=== PATIENT | male | born 1975 | race Caucasian/White ===

== ENCOUNTER 2018-02-17 13:29 | Emergency (ER) | payer MEDICAID ==
[2018-02-17 14:03] LABS: % BASOPHILS 0.1 % (0.0-2.0); % EOSINOPHILS 0.5 % (0.0-5.0); % LYMPHOCYTES 19.9 % (20.0-50.0); % MONOCYTES 5.5 % (2.0-10.0); EOSINOPHILE ABSOLUTE 0.1 Th/cmm (0.1-0.4); HEMATOCRIT 48.8 % (41.0-60); HEMOGLOBIN 16.7 gm/dL (12-16); LYMPHOCYTE ABSOLUTE 2.2 Th/cmm (1.5-3.0); MEAN CELL VOLUME 93.6 fl (80-99); MEAN CORPUSCULAR HEMOGLOBIN 32.1 pg (26.0-30.0); MEAN CORPUSCULAR HGB CONC 34.3 pg (28.0-36.0); MEAN PLATELET VOLUME 7.9 fl; MONOCYTE ABSOLUTE 0.6 Th/cmm (0.3-1.0); PLATELET COUNT 272 Th/cmm (150-400); RED BLOOD COUNT 5.21 Mil/cmm (4.30-5.70); RED CELL DISTRIBUTION WIDTH 12.6 % (11.5-20.0); WHITE BLOOD COUNT 10.9 Th/cmm (4.8-10.8)
--- NOTE | 2018-02-17 14:03 | ED Physician Chart ---
ED Chief Complaint/HPI - Patient Information Date Seen:: 02/17/18 Time Seen:: 13:50 Chief Complaint:: RIGHT KNEE PAIN History of Present Illness:: THIS IS A 42 YEAR OLD MALE WHO IS CONCERNED ABOUT THE PAIN AND SWELLING OF THE RIGHT KNEE WHICH GOT SO BAD THIS AM HE COULD NOT WALK TODAY. HE DENIES HAVING ANY RECENT OR OLD RIGHT KNEE TRAUMA. HE DENIES DIABETES, HTN OR HEART DISEASE. Allergies:: Allergies Allergy/AdvReac Type Severity Reaction Status Date / Time No Known Allergies Allergy Verified 02/17/18 13:52 Vitals:: Vital Signs - 8 hr 02/17/18 13:52 Temp 98.7 F HR 83 RR 16 BP 134/76 O2 Sat % 97 Historian:: Patient Review:: Nurse's Note Reviewed ED Review of Systems - Review of Systems Musculoskeletal: Bone or joint pain (RIGHT KNEE PAIN) ED Past Medical History - Past Medical History Obtainable: Yes Past Medical History: No significant medical hx Family History: None Social History: Non Smoker, No Alcohol, No Drug Use, , Employed Surgical History: Appendectomy Psychiatricy History: None Medication: Reviewed Family Medical History - Family Member Father History Unknown: Yes ED Physical Exam - Physical Examination General/Constitutional: Awake, Well-developed, well-nourished, Alert, No distress, GCS 15, Non-toxic appearing, Ambulatory Head: Atraumatic Eyes: Lids, conjuctiva normal, PERRL, EOMI Skin: Nl inspection, No rash, No skin lesions, No ecchymosis, Well hydrated, No lymphadenopathy ENMT: External ears, nose nl, Nasal exam nl, Lips, teeth, gums nl Neck: Nontender, Full ROM w/o pain, No JVD, No nuchal rigidity, No bruit, No mass, No stridor Respiratory: Nl effort/Exclusion, Clear to Auscultation, No Wheeze/Rhonchi/Rales Cardio Vascular: RRR, No murmur, gallop, rubs, NL S1 S2 GI: No tenderness/rebounding/guarding, No organomegaly, No hernia, Normal BS's, Nondistended, No mass/bruits, No McBurney tenderness : No CVA tenderness Extremities: No tenderness or effusion (RIGHT KNEE IS SWOLLEN WITH AN EFFUSION, WARM, TENDER AND RED.), Full ROM, normal strength in all extremities, No edema, Normal digits & nails Neuro/Psych: Alert/oriented, DTR's symmetric, Normal sensory exam, Normal motor strength, Judgement/insight normal, Mood normal, Normal gait, No focal deficits Misc: Normal back, No paraspinal tenderness ED Septic Shock - <6hrs of presentation: Vital Signs: Vital Signs - 8 hr //18 13:52 Temp 98.7 F HR 83 RR 16 BP 134/76 O2 Sat % 97
[2018-02-17 14:17] LABS: ALBUMIN 4.5 gm/dL (4.2-5.5); ANION GAP 11.8 (7.0-16.0); BUN - UREA NITROGEN 11 mg/dL (7-25); CALCIUM SERUM 9.4 mg/dL (8.6-10.3); CARBON DIOXIDE 26.6 mEq/L (21.0-31.0); CHLORIDE 102 mEq/L (98-107); CREATININE - SERUM 0.8 mg/dL (0.7-1.3); GFR AFRICAN-AMERICAN > 60.0 ml/min (>90); GFR NON AFRICAN-AMERICAN > 60.0 ml/min; GLUCOSE 93 mg/dL (70-105); POTASSIUM SERUM 3.4 mEq/L (3.5-5.1); SODIUM SERUM 137 mEq/L (136-145); TOTAL PROTEIN,SERUM 7.3 gm/dL (6.0-8.3)
[2018-02-17 14:18] LABS: ALB/GLOB RATIO 1.6 (1.0-1.8); ALKALINE PHOSPHATASE 70 U/L (34-104); SGOT 20 U/L (13-39); SGPT/ALT 23 U/L (7-52)
[2018-02-17 14:31] LABS: INR 1.04 (0.5-1.4); PROTHROMBIN TIME (TEST) 10.8 SECONDS (9.5-11.5)
[2018-02-17] MEDS ORDERED: Sodium Chloride 0.45% 500 ML IV ONE (14:31)
[2018-02-17 14:53] LABS: URINE MICROSCOPIC INDICATED? YES; URINE SOURCE CATH
[2018-02-17 14:57] LABS: URINE BILIRUBIN NEGATIVE (NEGATIVE); URINE BLOOD NEGATIVE (NEGATIVE); URINE GLUCOSE (UA) NEGATIVE (NEGATIVE); URINE KETONE NEGATIVE (NEGATIVE); URINE LEUKOCYTE ESTERASE NEGATIVE (NEGATIVE); URINE NITRATE NEGATIVE (NEGATIVE); URINE PROTEIN NEGATIVE (NEGATIVE); URINE UROBILINOGEN 0.2 E.U./dL (0.2 - 1.0)
[2018-02-17] MEDS ORDERED: IOHEXOL 300mgI/mL 100 ML VIAL ONE (14:58)
[2018-02-17 15:04] LABS: URINE CLARITY CLEAR (CLEAR); URINE COLOR YELLOW
[2018-02-17 15:05] LABS: URINE BACTERIA NONE SEEN /hpf (NONE SEEN); URINE EPITHELIAL CELLS NONE SEEN /lpf (FEW); URINE RBC NONE SEEN /hpf (0-5); URINE WBC NONE SEEN /hpf (0-5)
--- NOTE | 2018-02-18 08:47 | Diagnostic Imaging Report ---
CT right knee with IV contrast History: Pain, swelling, effusion Comparison: None Technique: Axial images were obtained from the distal femur or proximal tibia with IV contrast. Reconstructions were made. Total DLP 160, CTD I 4 Findings: Exam is limited due to motion including limiting assessment for fractures. Minimal degenerative changes are noted. The knee joint spaces are preserved. No evidence of a joint effusion. There is diffuse subcutaneous edema and seen throughout the prepatellar and infrapatellar soft tissues with small amount of fluid and possible phlegmonous changes. There may be tiny filling defects within the right popliteal vein. No evidence of osseous erosions. IMPRESSION: Limited exam due to motion. There is diffuse subcutaneous edema and inflammatory changes along the prepatellar and infrapatellar soft tissues. Small amount of fluid is seen located along the prepatellar region. Phlegmonous changes and small early abscess formation this region cannot be excluded. Clinical correlation and follow-up is recommended. Possible small Filling defect within the right popliteal vein. This may be due to the phase of contrast opacification, however, DVT in these regions cannot be excluded. Recommend dedicated DVT study for further assessment No evidence of a knee effusion. The final results and recommendations were administered and discussed with the referring team on 02/18/2018 8:44 AM.
== END 2018-02-17 16:51 | disposition home or self-care (01) ==
LOC: ER 13:29
DX: M25.561 Pain in right knee (principal); M25.461 Effusion, right knee; Z90.49 Acquired absence of other specified parts of digestive tract
CPT/HCPCS: 99285; 96372; 73702; 36415; 85025; 85610; 85730; 81001; 80053; 84550; 87040 ×2; J0696; Q9967

== ENCOUNTER 2018-02-18 04:46 | Inpatient (IN) | payer MEDICAID ==
[2018-02-18] MEDS ORDERED: Sodium Chloride 0.9% 1,000 ML IV ONE (05:17)
--- NOTE | 2018-02-18 05:25 | ED Physician Chart ---
ED Chief Complaint/HPI - Patient Information Date Seen:: 02/18/18 Time Seen:: 05:10 Chief Complaint:: right knee pain History of Present Illness:: Patient had onset 2 days ago of right knee pain. Patient's had chills but no fever. No trauma. Patient was seen in this emergency department yesterday and prescribed Cipro and a Z-Ayaan. He is taken two of the Z-Ayaan and 1 Cipro. Right knee pain is increased. Allergies:: Allergies Allergy/AdvReac Type Severity Reaction Status Date / Time No Known Allergies Allergy Verified 02/18/18 04:55 Vitals:: Vital Signs - 8 hr 02/18/18 04:50 Temp 98.4 F HR 83 RR 18 BP 127/83 O2 Sat % 97 Historian:: Patient, Family Member Review:: Nurse's Note Reviewed ED Review of Systems - Review of Systems General/Constitutional: Chills Skin: Skin lesions Head: No headache Eyes: No loss of vision ENT: No earache Neck: No neck pain Cardio Vascular: No chest pain Pulmonary: No SOB GI: No nausea, No vomiting, No diarrhea G/U: No dysuria Musculoskeletal: Bone or joint pain Endocrine: No polyuria Psychiatric: No prior psych history, No anxiety Hematopoietic: No bruising Allergic/Immuno: No urticaria Neurological: Focal symptoms, Weakness ED Past Medical History - Past Medical History Past Medical History: No significant medical hx Family History: None Social History: Smoker, Alcohol, Other (slight tobacco and slight alcohol use) Surgical History: Appendectomy Psychiatricy History: None Medication: Reviewed Family Medical History - Family Member Father History Unknown: Yes Ethnicity: ED Physical Exam - Physical Examination General/Constitutional: Awake, Well-developed, well-nourished, Alert, No distress, GCS 15, Non-toxic appearing, Ambulatory Head: Atraumatic Eyes: Lids, conjuctiva normal, PERRL, EOMI Skin: Well hydrated, No lymphadenopathy Other Skin comments:: Right leg: there is about 25 cm of pale erythema extending distally from the skin over the most proximal aspect of the patella. The redness is over the anterior and lateral aspect of the knee and right lower leg. Over the patellar tendon there is about a 2-1/2 cm slightly raised area which is the site of maximum tenderness ENMT: External ears, nose nl, Nasal exam nl, Lips, teeth, gums nl Neck: Nontender, Full ROM w/o pain, No JVD, No nuchal rigidity, No bruit, No mass, No stridor Respiratory: Nl effort/Exclusion, Clear to Auscultation, No Wheeze/Rhonchi/Rales Cardio Vascular: RRR, No murmur, gallop, rubs, NL S1 S2 GI: No tenderness/rebounding/guarding, No organomegaly, No hernia, Normal BS's, Nondistended, No mass/bruits, No McBurney tenderness : No CVA tenderness Extremities: No edema Other Extremities comments:: About 90 of passive flexion right knee Neuro/Psych: Alert/oriented, DTR's symmetric, Normal sensory exam, Normal motor strength, Judgement/insight normal, Mood normal, Normal gait, No focal deficits Misc: Normal back, No paraspinal tenderness ED Assessment - Assessment General Assessment: The area of maximum swelling and tenderness over the patellar tendon may be an early abscess. If david MRSA is a major consideration of the etiology of the infection. Since the infection seems to be getting worse is appropriate to admit the patient. I spoke to Dr. Jamie Cole at about 0600 and he will be the admitting physician/ ED Septic Shock - . Is Septic Shock (SBP<90, OR Lactate>4 mmol\L) present?: No - <6hrs of presentation: Vital Signs: Vital Signs - 8 hr 02/18/18 04:50 Temp 98.4 F HR 83 RR 18 BP 127/83 O2 Sat % 97 ED Reassessment (Disposition) - Reassessment Reassessment Condition:: Unchanged - Diagnosis Diagnosis:: Cellulitis right knee and right lower leg; early abscess right knee - Patient Disposition Admitted to:: Med/Surg Spoke to:: Jamie Cole Admitting Medical Physician:: Jamie Cole Condition at Disposition:: Stable, Unchanged
--- NOTE | 2018-02-18 07:43 | History and Physical ---
History of Present Illness - HPI Chief Complaint: right knee pain HPI: 42 y/o male who presents to [facility] ER for right knee pain and swelling. Patient was seen in the ER prior to admission and was initially treat with PO antibiotics. Patient return to the ER with worsening of his symptoms. Initial labwork showed a slight increased in WBC's to 10.9. Patient K + was noted to be low at 3.4. 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 Patient's had chills but no fever. No trauma. Patient was seen in this emergency department yesterday and prescribed Cipro and a Z-Ayaan. He is taken two of the Z-Ayaan and 1 Cipro. Right knee pain is increased. Vital Signs: Last Vital Signs Temp 98.0 F 02/18/18 06:55 Pulse 78 02/18/18 06:55 Resp 18 02/18/18 06:55 BP 125/80 02/18/18 06:55 Pulse Ox 98 02/18/18 06:55 Past Medical History Cardiovascular: Report: No Pertinent Hx Pulmonary: Report: No Pertinent Hx [employer]: Report: No Pertinent Hx GI: Report: No Pertinent Hx Psych: Report: No Pertinent Hx Musculoskeletal: Report: Swelling (right knee swelling and pain) Rheumatologic: Report: No pertinent Hx Infectious Disease: Report: No Pertinent Hx Renal/: Report: No Pertinent Hx Endocrine: Report: No Pertinent Hx Dermatology: Report: No Pertinent Hx - Past Surgical History Past Surgical History: No pertinent Hx Family Medical History - Family Member Father History Unknown: Yes Ethnicity: Social History Smoke: No Alcohol: None Drugs: None Lives: With Family - Medications Home Medications: Home Medication Medication Instructions Recorded Type Azithromycin [Zithromax Tri-Ayaan] 500 mg PO DAILY #1 tab 02/17/18 Rx Ciprofloxacin HCl [Cipro] 250 mg PO BID 7 Days #14 tab 02/17/18 Rx - Allergies Allergies/Adverse Reactions: Allergies Allergy/AdvReac Type Severity Reaction Status Date / Time No Known Allergies Allergy Verified 02/18/18 04:55 Review of Systems - Review of Systems Constitutional: Report: No Significant Eyes: Report: No Significant ENT: Report: No Significant Respiratory: Report: No Significant Cardiovascular: Report: No Significant Gastrointestinal: Report: No Significant Genitourinary: Report: No Significant Musculoskeletal: Report: Other (right knee pain) Skin: Report: No Significant Neurological: Report: No Significant Physical Exam - Physical Exam HEENT: Report: Ears Nose Throat within normal limits, Pharnyx within normal limits Neck: Report: Within normal limits Cardiovascular Systems: Report: +s1/s2 noted, Regular, Rate and Rhythm Respiratory: Report: Breath Sounds are within normal limits, Clear to Auscultation of lung king Abdomen: Report: Non-tender to palpation Back: Report: Inspection of back is within normal limits. Extremities: Report: Other (right knee erythema, swelling noted to the prepateller region) Skin: Report: Warm (warmth and redness noted at the right prepatellar area) Neuro/Psych: Report: Mood affect is within normal limits, A+Ox3, CN II-XII intact - Assessment Assessment: right knee cellulitis possible early right knee abscess sepsis - Plan Plan: will order ortho consult xray of the right knee vancomycin per pharmacy zosyn IV repeat CBC, CMP, ESR, blood cultures IV pain meds
[2018-02-18] MEDS ORDERED: Morphine Sulfate 2 mg/mL 1mL Syr IVP PRN (07:48)
[2018-02-18 08:49] LABS: % BASOPHILS 0.2 % (0.0-2.0); % EOSINOPHILS 0.7 % (0.0-5.0); % LYMPHOCYTES 19.2 % (20.0-50.0); % MONOCYTES 8.2 % (2.0-10.0); % NEUTROPHILS 71.7 % (40.0-80.0); EOSINOPHILE ABSOLUTE 0.1 Th/cmm (0.1-0.4); HEMATOCRIT 45.1 % (41.0-60); HEMOGLOBIN 15.5 gm/dL (12-16); LYMPHOCYTE ABSOLUTE 1.8 Th/cmm (1.5-3.0); MEAN CELL VOLUME 93.5 fl (80-99); MEAN CORPUSCULAR HGB CONC 34.3 pg (28.0-36.0); MEAN PLATELET VOLUME 8.1 fl; MONOCYTE ABSOLUTE 0.8 Th/cmm (0.3-1.0); NEUTROPHILE ABSOLUTE 6.9 Th/cmm (1.8-8.0); PLATELET COUNT 250 Th/cmm (150-400); RED BLOOD COUNT 4.83 Mil/cmm (4.30-5.70); RED CELL DISTRIBUTION WIDTH 12.3 % (11.5-20.0); WHITE BLOOD COUNT 9.6 Th/cmm (4.8-10.8)
[2018-02-18 09:05] LABS: ALB/GLOB RATIO 1.5 (1.0-1.8); ALBUMIN 3.8 gm/dL (4.2-5.5); ALKALINE PHOSPHATASE 72 U/L (34-104); BUN - UREA NITROGEN 10 mg/dL (7-25); CALCIUM SERUM 8.9 mg/dL (8.6-10.3); CARBON DIOXIDE 24.9 mEq/L (21.0-31.0); CHLORIDE 107 mEq/L (98-107); CREATININE - SERUM 0.7 mg/dL (0.7-1.3); GFR AFRICAN-AMERICAN > 60.0 ml/min (>90); GFR NON AFRICAN-AMERICAN > 60.0 ml/min; GLUCOSE 114 mg/dL (70-105); POTASSIUM SERUM 3.9 mEq/L (3.5-5.1); SGOT 24 U/L (13-39); SGPT/ALT 21 U/L (7-52); SODIUM SERUM 137 mEq/L (136-145); TOTAL PROTEIN,SERUM 6.3 gm/dL (6.0-8.3)
[2018-02-18 09:08] LABS: ESR SEDIMENTATION SED RATE 8 mm/hr (0-20)
--- NOTE | 2018-02-18 09:20 | Diagnostic Imaging Report ---
Right knee 3 views Indication: pain Comparison: Right knee CT on 02/17/2018 Findings: No evidence of an acute fracture or dislocation. No osseous erosions. No joint effusion. There is subcutaneous edema with soft tissue swelling greatest along the prepatellar and infrapatellar regions. Impression: No evidence of an acute fracture. Subcutaneous edema and soft tissue swelling greatest along the prepatellar and infrapatellar regions. Please refer to recent CT examination for further details. In the setting of trauma, if clinical symptoms persist and there is continued concern for an occult fracture, follow up exams in 5-7 days is suggested.
[2018-02-18] MEDS: D5-0.45NS 1,000 ML IV SCH (17:51)
--- NOTE | 2018-02-19 07:23 | General Progress Note ---
Subjective - Review of Systems Service Date: 02/19/18 Subjective: Patient was seen and examined. Feels better this AM. localized swelling and redness to the affected area. Afebrile. Objective - Results Result Diagrams: 02/18/18 08:20 02/18/18 08:20 Recent Labs: Laboratory Last Values WBC 9.6 Th/cmm (4.8-10.8) 02/18/18 08:20 RBC 4.83 Mil/cmm (4.30-5.70) 02/18/18 08:20 Hgb 15.5 gm/dL (12-16) 02/18/18 08:20 Hct 45.1 % (41.0-60) 02/18/18 08:20 MCV 93.5 fl (80-99) 02/18/18 08:20 MCH 32.0 pg (26.0-30.0) H 02/18/18 08:20 MCHC Differential 34.3 pg (28.0-36.0) 02/18/18 08:20 RDW 12.3 % (11.5-20.0) 02/18/18 08:20 Plt Count 250 Th/cmm (150-400) 02/18/18 08:20 MPV 8.1 fl 02/18/18 08:20 Neutrophils % 71.7 % (40.0-80.0) 02/18/18 08:20 Lymphocytes % 19.2 % (20.0-50.0) L 02/18/18 08:20 Monocytes % 8.2 % (2.0-10.0) 02/18/18 08:20 Eosinophils % 0.7 % (0.0-5.0) 02/18/18 08:20 Basophils % 0.2 % (0.0-2.0) 02/18/18 08:20 ESR 8 mm/hr (0-20) 02/18/18 08:20 Sodium 137 mEq/L (136-145) 02/18/18 08:20 Potassium 3.9 mEq/L (3.5-5.1) 02/18/18 08:20 Chloride 107 mEq/L (98-107) 02/18/18 08:20 Carbon Dioxide 24.9 mEq/L (21.0-31.0) 02/18/18 08:20 Anion Gap 9.0 (7.0-16.0) 02/18/18 08:20 BUN 10 mg/dL (7-25) 02/18/18 08:20 Creatinine 0.7 mg/dL (0.7-1.3) 02/18/18 08:20 Est GFR ( Amer) > 60.0 ml/min (>90) 02/18/18 08:20 Est GFR (Non-Af Amer) > 60.0 ml/min 02/18/18 08:20 BUN/Creatinine Ratio 14.3 02/18/18 08:20 Glucose 114 mg/dL (70-105) H 02/18/18 08:20 Calcium 8.9 mg/dL (8.6-10.3) 02/18/18 08:20 Total Bilirubin 1.0 mg/dL (0.3-1.0) 02/18/18 08:20 AST 24 U/L (13-39) 02/18/18 08:20 ALT 21 U/L (7-52) 02/18/18 08:20 Alkaline Phosphatase 72 U/L (34-104) 02/18/18 08:20 Total Protein 6.3 gm/dL (6.0-8.3) 02/18/18 08:20 Albumin 3.8 gm/dL (4.2-5.5) L 02/18/18 08:20 Globulin 2.5 gm/dL 02/18/18 08:20 Albumin/Globulin Ratio 1.5 (1.0-1.8) 02/18/18 08:20 - Physical Exam Vitals and I&O: Vital Signs Temp 98.2 F 02/19/18 04:00 Pulse 67 02/19/18 04:00 Resp 17 02/19/18 04:00 BP 110/64 02/19/18 04:00 Pulse Ox 99 02/19/18 04:00 Intake & Output 02/18/18 02/19/18 02/19/18 18:59 06:59 18:59 Intake Total 350 50 Balance 350 50 Weight (lbs) 76.204 kg Intake: Intake, IV Amount 350 50 Piperacillin Sodium/ 100 50 Tazobact 3.375 gm In Sodium Chloride 0.9% 50 ml @ 100 mls/hr IV Q6HR [facility] Rx#:[id number] Other: Weight Source Bedscale Active Medications: Current Medications Piperacillin Sod/Tazobactam (Sod 3.375 gm/ Sodium Chloride) 50 mls @ 100 mls/ hr IV Q6HR [facility] Stop: 04/19/18 11:59 Last Admin: 02/19/18 06:06 Dose: 100 mls/hr Dextrose/Sodium Chloride (D5-0.45ns) 1,000 mls @ 50 mls/hr IV .Q20H [facility] Stop: 04/19/18 17:29 Last Admin: 02/18/18 17:51 Dose: 50 mls/hr Ibuprofen (Motrin) 600 mg PO TID [facility] Stop: 04/19/18 08:59 Last Admin: 02/18/18 21:47 Dose: Not Given Morphine Sulfate (Morphine) 1 mg IVP Q4HR PRN PRN Reason: Pain (Moderate) Stop: 04/19/18 07:47 General: Alert, Oriented x3, No acute distress HEENT: Atraumatic, PERRLA, EOMI Neck: Supple, no JVD Cardiovascular: Regular rate, Normal S1, Normal S2 Lungs: Clear to auscultation Abdomen: Bowel sounds Extremities: no Clubbing, no Cyanosis, no Edema - Procedures Procedures: Procedures Procedure Code Date LAPAROSCOP APPENDECTOMY 47.01 11/10/12 LAPAROSCOPY APPENDECTOMY 81542 11/10/12 Assessment/Plan - Assessment Assessment: right knee cellulitis possible early right knee abscess sepsis - Plan Plan: will order ortho consult xray of the right knee vancomycin per pharmacy zosyn IV right lower extremity Venous US IV pain meds
--- NOTE | 2018-02-19 11:15 | Diagnostic Imaging Report ---
Right lower extremity Doppler venous ultrasound exam HISTORY: Pain/swelling Sonographic sector images were obtained through the deep venous systems of the right leg. Associated Doppler data was obtained. The exam demonstrates patency of the common femoral, superficial femoral, popliteal, and posterior tibial veins. Specifically, no thrombus is seen. There are normal compressibility and augmentation responses. IMPRESSION: Negative exam for deep vein thrombophlebitis.
--- NOTE | 2018-02-19 16:46 | Consultation ---
DATE OF CONSULTATION: 02/19/2018 ORTHOPEDIC SURGERY CONSULTATION REASON FOR CONSULTATION: The patient is a 42-year-old male admitted to [facility] on 02/18/2018 because of an infection of his right knee. I was called in orthopedic consultation regarding his knee. 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 of his right knee. He began with pain and swelling and infection several days ago and was seen in the Emergency Room and prescribed antibiotics. His symptoms worsened and he returned and was admitted. He has no other areas of infection in his body and denies prior similar situations. ADDITIONAL PAST HISTORY: Surgeries include prior appendectomy. He has no medical issues. Takes no prescription medication prior to this event. PHYSICAL EXAMINATION: The patient was examined in his hospital room at [facility]. Slight swelling of the prepatellar tendon area was noted with minimal tenderness. There was minimal fluctuance of slight fluid under the skin. He stated there was markedly more swelling and pain in the prior 2 days than now -- the antibiotics are helping. The knee itself is dry with no effusion. There is nearly normal motion of the knee with minimal discomfort. Neurovascular function normal. IMAGING STUDIES: I viewed the images in the PACS. X-rays of the right knee, 3-views 02/18/2018: The lateral view showed some soft tissue swelling exactly over the patellar tendon. Remainder of the views are normal. There is a CT of the knee on 02/17/2018, which does not show any evidence of injury or trauma or fluid in the knee. He had an ultrasound of the leg for DVT, but none were found -- it was negative. ORTHOPEDIC IMPRESSION: Prepatellar bursitis, probably septic right knee. RECOMMENDATIONS: He is improving nicely on his present antibiotic treatment regimen. One might add intermittent warm moist compresses to help resolve this situation sooner. As along as his issue resolved, he will not need surgical exploration or drainage. I will see him again at your request. JOB# [id number] YOAN
[2018-02-20] MEDS: D5-0.45NS 1,000 ML IV SCH (01:01)
--- NOTE | 2018-02-20 07:48 | General Progress Note ---
Subjective - Review of Systems Service Date: 02/20/18 Subjective: Patient was seen and examined. Feels better this AM. localized swelling and redness to the affected area is slowly improving. Afebrile. Objective - Results Result Diagrams: 02/18/18 08:20 02/18/18 08:20 Recent Labs: Laboratory Last Values WBC 9.6 Th/cmm (4.8-10.8) 02/18/18 08:20 RBC 4.83 Mil/cmm (4.30-5.70) 02/18/18 08:20 Hgb 15.5 gm/dL (12-16) 02/18/18 08:20 Hct 45.1 % (41.0-60) 02/18/18 08:20 MCV 93.5 fl (80-99) 02/18/18 08:20 MCH 32.0 pg (26.0-30.0) H 02/18/18 08:20 MCHC Differential 34.3 pg (28.0-36.0) 02/18/18 08:20 RDW 12.3 % (11.5-20.0) 02/18/18 08:20 Plt Count 250 Th/cmm (150-400) 02/18/18 08:20 MPV 8.1 fl 02/18/18 08:20 Neutrophils % 71.7 % (40.0-80.0) 02/18/18 08:20 Lymphocytes % 19.2 % (20.0-50.0) L 02/18/18 08:20 Monocytes % 8.2 % (2.0-10.0) 02/18/18 08:20 Eosinophils % 0.7 % (0.0-5.0) 02/18/18 08:20 Basophils % 0.2 % (0.0-2.0) 02/18/18 08:20 ESR 8 mm/hr (0-20) 02/18/18 08:20 Sodium 137 mEq/L (136-145) 02/18/18 08:20 Potassium 3.9 mEq/L (3.5-5.1) 02/18/18 08:20 Chloride 107 mEq/L (98-107) 02/18/18 08:20 Carbon Dioxide 24.9 mEq/L (21.0-31.0) 02/18/18 08:20 Anion Gap 9.0 (7.0-16.0) 02/18/18 08:20 BUN 10 mg/dL (7-25) 02/18/18 08:20 Creatinine 0.7 mg/dL (0.7-1.3) 02/18/18 08:20 Est GFR ( Amer) > 60.0 ml/min (>90) 02/18/18 08:20 Est GFR (Non-Af Amer) > 60.0 ml/min 02/18/18 08:20 BUN/Creatinine Ratio 14.3 02/18/18 08:20 Glucose 114 mg/dL (70-105) H 02/18/18 08:20 Calcium 8.9 mg/dL (8.6-10.3) 02/18/18 08:20 Total Bilirubin 1.0 mg/dL (0.3-1.0) 02/18/18 08:20 AST 24 U/L (13-39) 02/18/18 08:20 ALT 21 U/L (7-52) 02/18/18 08:20 Alkaline Phosphatase 72 U/L (34-104) 02/18/18 08:20 Total Protein 6.3 gm/dL (6.0-8.3) 02/18/18 08:20 Albumin 3.8 gm/dL (4.2-5.5) L 02/18/18 08:20 Globulin 2.5 gm/dL 02/18/18 08:20 Albumin/Globulin Ratio 1.5 (1.0-1.8) 02/18/18 08:20 - Physical Exam Vitals and I&O: Vital Signs Temp 98.0 F 02/20/18 07:33 Pulse 71 02/20/18 07:33 Resp 18 02/20/18 07:33 BP 116/82 02/20/18 07:33 Pulse Ox 98 02/20/18 07:33 Intake & Output 02/19/18 02/20/18 02/20/18 18:59 06:59 18:59 Intake Total 1600 50 Balance 1600 50 Weight (lbs) 76.204 kg Intake: Intake, IV Amount 1600 50 D5-0.45NS 1,000 ml @ 50 1000 mls/hr IV .Q20H [facility] Rx#: [id number] Piperacillin Sodium/ 100 50 Tazobact 3.375 gm In Sodium Chloride 0.9% 50 ml @ 100 mls/hr IV Q6HR [facility] Rx#:[id number] Vancomycin HCl 1.25 gm In 500 Sodium Chloride 0.9% 250 ml @ 165 mls/hr IV Q8H [facility] Rx#:[id number] Other: Weight Source Bedscale Active Medications: Current Medications Acetaminophen (Tylenol) 650 mg PO Q6H PRN PRN Reason: Headache Stop: 04/20/18 07:19 Piperacillin Sod/Tazobactam (Sod 3.375 gm/ Sodium Chloride) 50 mls @ 100 mls/ hr IV Q6HR [facility] Stop: 04/19/18 11:59 Last Admin: 02/20/18 05:47 Dose: 100 mls/hr Dextrose/Sodium Chloride (D5-0.45ns) 1,000 mls @ 50 mls/hr IV .Q20H [facility] Stop: 04/19/18 17:29 Last Admin: 02/20/18 01:01 Dose: 50 mls/hr Vancomycin HCl 1.25 gm/ Sodium (Chloride) 250 mls @ 165 mls/hr IV Q8H [facility] Stop: 04/20/18 07:59 Last Admin: 02/20/18 01:02 Dose: 165 mls/hr Ibuprofen (Motrin) 800 mg PO BID PRN PRN Reason: Pain (Mild) Stop: 04/20/18 07:18 Last Admin: 02/19/18 07:56 Dose: 800 mg Miscellaneous (Vancomycin Iv Per Pharmacy) 1 ea [facility] PRN PRN PRN Reason: PROTOCOL Stop: 04/20/18 07:16 Morphine Sulfate (Morphine) 1 mg IVP Q4HR PRN PRN Reason: Pain (Moderate) Stop: 04/19/18 07:47 General: Alert, Oriented x3, No acute distress HEENT: Atraumatic, PERRLA, EOMI Neck: Supple, no JVD Cardiovascular: Regular rate, Normal S1, Normal S2 Lungs: Clear to auscultation Abdomen: Bowel sounds, Splenomegaly Extremities: Tender (swelling, erythema, redness right knee) - Procedures Procedures: Procedures Procedure Code Date LAPAROSCOP APPENDECTOMY 47.01 11/10/12 LAPAROSCOPY APPENDECTOMY 99191 11/10/12 Assessment/Plan - Assessment Assessment: right knee cellulitis vs bursitis possible early right knee abscess sepsis right knee pain - Plan Plan: will order ortho consult xray of the right knee vancomycin per pharmacy zosyn IV right lower extremity Venous US IV pain meds
[2018-02-20 07:53] LABS: % BASOPHILS 0.7 % (0.0-2.0); % EOSINOPHILS 1.9 % (0.0-5.0); % LYMPHOCYTES 28.5 % (20.0-50.0); % MONOCYTES 9.4 % (2.0-10.0); % NEUTROPHILS 59.5 % (40.0-80.0); EOSINOPHILE ABSOLUTE 0.1 Th/cmm (0.1-0.4); HEMATOCRIT 44.1 % (41.0-60); HEMOGLOBIN 15.2 gm/dL (12-16); LYMPHOCYTE ABSOLUTE 1.8 Th/cmm (1.5-3.0); MEAN CORPUSCULAR HEMOGLOBIN 32.4 pg (26.0-30.0); MEAN CORPUSCULAR HGB CONC 34.5 pg (28.0-36.0); MEAN PLATELET VOLUME 8.2 fl; MONOCYTE ABSOLUTE 0.6 Th/cmm (0.3-1.0); NEUTROPHILE ABSOLUTE 3.8 Th/cmm (1.8-8.0); PLATELET COUNT 275 Th/cmm (150-400); RED BLOOD COUNT 4.69 Mil/cmm (4.30-5.70); RED CELL DISTRIBUTION WIDTH 12.4 % (11.5-20.0); WHITE BLOOD COUNT 6.3 Th/cmm (4.8-10.8)
[2018-02-20 07:58] LABS: ANION GAP 13.6 (7.0-16.0); BUN - UREA NITROGEN 7 mg/dL (7-25); CALCIUM SERUM 9.1 mg/dL (8.6-10.3); CARBON DIOXIDE 24.3 mEq/L (21.0-31.0); CHLORIDE 105 mEq/L (98-107); CREATININE - SERUM 0.9 mg/dL (0.7-1.3); GFR AFRICAN-AMERICAN > 60.0 ml/min (>90); GFR NON AFRICAN-AMERICAN > 60.0 ml/min; GLUCOSE 109 mg/dL (70-105); POTASSIUM SERUM 3.9 mEq/L (3.5-5.1); SODIUM SERUM 139 mEq/L (136-145)
--- NOTE | 2018-02-21 08:07 | Discharge Summary ---
DATE OF DISCHARGE: 02/20/2018 PRILIMINARY DIAGNOSES: Right knee septic arthritis versus cellulitis, possible early right knee abscess and sepsis. DISCHARGE DIAGNOSES: Right knee septic arthritis versus cellulitis, possible early right knee abscess and sepsis. BRIEF HISTORY OF PRESENT ILLNESS: This is a 42-year-old male who presenting to the [facility] ER for right knee pain and swelling, was initially seen in the ER prior to admission and was treated outpatient with p.o. antibiotics; however, the patient returned to the ER with worsening of his symptoms. Initial lab work showed a slight increase in WBCs to 10.9, potassium was noted to be low at 3.4. 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 Denies any fever or chills. Denies any trauma. Had a CT of the right knee, which revealed early abscess formation. The patient was then subsequently admitted for IV antibiotic treatment. HOSPITAL COURSE: The patient improved during his hospital stay, was seen and evaluated by Ortho. Please see dictated report. The patient was started on IV Zosyn and IV vancomycin. An x-ray of the right knee was ordered. Please see dictated report. Repeat lab work revealed decrease in his white count from 10.6-9.6-6.3. The patient was subsequently discharged in stable condition to follow up with his primary care physician in 3 days and given a course of oral antibiotics to take for the next 10 days, Augmentin 500 three times a day for 10 days. JOB# [id number]
== END 2018-02-20 11:40 | disposition home or self-care (01) | DRG 720 ==
LOC: ER 04:46 → MSI 06:24
PROVIDERS: ADMIT Family Medicine; ATTEND Family Medicine
DX: A41.9 Sepsis, unspecified organism (principal); M00.9 Pyogenic arthritis, unspecified; L02.415 Cutaneous abscess of right lower limb; L03.115 Cellulitis of right lower limb; F17.200 Nicotine dependence, unspecified, uncomplicated; M70.40 Prepatellar bursitis, unspecified knee; Y93.89 Activity, other specified
CPT/HCPCS: 36415-UA; 73560-TC-RT; 80048-TC; 80053-TC; 80202-TC; 85025-TC; 85652-TC; 93971-TC-RT; J2543; J3370; J7030